=== PATIENT | female | born 2000 | race Caucasian/White ===

== ENCOUNTER 2020-05-15 22:49 | Outpatient (CLI) | payer OTHER ==
[2020-05-15 23:41] LABS: APPEARANCE,URINE SLIGHTLY-CLOUDY; BILIRUBIN,URINE NEGATIVE (NEGATIVE); COLOR,URINE YELLOW; GLUCOSE, URINE NEGATIVE (NEGATIVE); KETONES,URINE NEGATIVE (NEGATIVE); LEUKOCYTE ESTERASE,URINE SMALL (NEGATIVE); NITRITE,URINE NEGATIVE (NEGATIVE); PROTEIN,URINE NEGATIVE (NEGATIVE); URINE SPECIFIC GRAVITY 1.017; UROBILINOGEN,URINE NEGATIVE mg/dL (<2.0)
[2020-05-15 23:55] LABS: URINE AMPHETAMINES SCREEN NEGATIVE; URINE BARBITURATES SCREEN NEGATIVE; URINE BENZODIAZEPINES SCREEN NEGATIVE; URINE COCAINE SCREEN NEGATIVE; URINE MARIJUANA (THC) SCREEN NEGATIVE; URINE METHADONE SCREEN NEGATIVE; URINE PHENCYCLIDINE SCREEN NEGATIVE
--- NOTE | 2020-05-15 23:57 | Non Stress Test Report ---
Non Stress Test Datetime Report Generated by CPN: 05/15/2020 23:56 DEMOGRAPHIC EGA NST: 37.4 INDICATION Indication for Study (NST) Other: LC VITAL SIGNS Temperature - NST: 99.0 Pulse - NST: 110 RESP - NST: 17 NBPSYS NST: 130 NBPDIA NST: 72 MONITORING Monitor Explained: Monitor Explained; Test Explained; Patient Verbalized Understanding Time on Monitor: 05/15/2020 23:03 Time off Monitor: 05/15/2020 23:52 NST Duration: 49 NST INTERVENTIONS NST Interventions: PO Hydration; Reposition Patient Physician Notified NST: Dr. Todd BABY A: [id number] BABY A Movement : Present Contraction Frequency : irregular with irritability FHR Baseline : 145 Accelerations : 15X15 Decelerations : None Variability : Moderate 6-25bpm NST Review: Meets Criteria for Reactive NST NST Review and Verified By : Marleen Lozano RN NST Results: Reactive NST REPORT Report Trigger: Send Report
== END 2020-05-16 00:09 | disposition home or self-care (01) ==
LOC: LC 22:49
PROVIDERS: ATTEND Obstetrics & Gynecology
DX: O36.8130 Decreased fetal movements, third trimester, not applicable or unspecified (principal); Z3A.37 37 weeks gestation of pregnancy
CPT/HCPCS: 80307; 81005

== ENCOUNTER 2020-06-05 10:08 | Inpatient (IN) | payer OTHER ==
[2020-06-05 11:07] LABS: APPEARANCE,URINE SLIGHTLY-CLOUDY; BILIRUBIN,URINE NEGATIVE (NEGATIVE); COLOR,URINE YELLOW; GLUCOSE, URINE NEGATIVE (NEGATIVE); KETONES,URINE NEGATIVE (NEGATIVE); LEUKOCYTE ESTERASE,URINE TRACE (NEGATIVE); NITRITE,URINE NEGATIVE (NEGATIVE); PROTEIN,URINE NEGATIVE (NEGATIVE); URINE SPECIFIC GRAVITY 1.009; UROBILINOGEN,URINE NEGATIVE mg/dL (<2.0)
[2020-06-05 11:31] LABS: URINE AMPHETAMINES SCREEN NEGATIVE; URINE BARBITURATES SCREEN NEGATIVE; URINE BENZODIAZEPINES SCREEN NEGATIVE; URINE COCAINE SCREEN NEGATIVE; URINE MARIJUANA (THC) SCREEN NEGATIVE; URINE METHADONE SCREEN NEGATIVE; URINE PHENCYCLIDINE SCREEN NEGATIVE
[2020-06-05] MEDS ORDERED: RINGERS SOLUTION,LACTATED 1,000 ML IV PRN (13:29)
[2020-06-05] MEDS ORDERED: RINGERS SOLUTION,LACTATED 1,000 ML IV ONE (13:29)
[2020-06-05 13:59] LABS: ABSOLUTE BASOPHILS # (AUTO) 0.1 10^3/uL (0.0-0.2); ABSOLUTE LYMPHOCYTES (AUTO) 1.4 10^3/uL (0.5-4.7); ABSOLUTE MONOCYTES (AUTO) 0.5 10^3/uL (0.1-1.4); ABSOLUTE NEUT (AUTO) 13.5 10^3/uL (1.7-8.2); BASOPHILS % (AUTO) 0.4 % (0-2); EOSINOPHILS % (AUTO) 0.3 % (0-6); HEMATOCRIT 37.4 % (36.0-47.0); HEMOGLOBIN 12.9 g/dL (12.0-15.5); MEAN CORPUSCULAR HEMOGLOBIN 33.3 pg (27.0-33.4); MEAN CORPUSCULAR HGB CONC 34.4 g/dL (32.0-36.0); MEAN CORPUSCULAR VOLUME 97 fl (80-97); MONOCYTES % (AUTO) 3.2 % (3-13); PLATELET COUNT 204 10^3/uL (150-450); RED BLOOD COUNT 3.87 10^6/uL (3.72-5.28); RED CELL DISTRIBUTION WIDTH 12.3 % (11.5-14.0); SEGMENTED NEUTROPHILS % (AUTO) 87.1 % (42-78); TOTAL CELLS COUNTED % (AUTO) 100 %; WHITE BLOOD COUNT 15.5 10^3/uL (4.0-10.5)
[2020-06-05] MEDS ORDERED: EPHEDRINE SULFATE INJ 50 MG/1 ML AMPULE ONE (14:11)
[2020-06-05] MEDS ORDERED: MISOPROSTOL 0.2 MG TABLET ONE (14:11)
[2020-06-05] MEDS ORDERED: OXYTOCIN 10 UNIT/ML VIAL ONE (14:11)
[2020-06-05] MEDS ORDERED: OXYTOCIN/0.9 % SODIUM CHLORIDE 30 UNIT/500 ML RTUINJ ONE (14:12)
[2020-06-05] MEDS ORDERED: LIDOCAINE 1% INJ-PF (10 MG/ML) 30 ML SDV ONE (14:12)
[2020-06-05] MEDS ORDERED: FENTANYL/BUPIVACAINE/NS/PF 300 MCG/150 ML RTUINJ EPI ONE (14:12)
[2020-06-05] MEDS ORDERED: ROPIVACAINE HCL 0.2% INJ/PF (2 MG/ML) 20 ML SDV ONE (14:12)
--- NOTE | 2020-06-05 14:16 | Admission Physical ---
Datetime Report Generated by CPN: 06/05/2020 14:16 CURRENT ADMISSION Hx Assessment: The History has been Reviewed and is Current Chief Complaint: Uterine Contractions Indication for Induction: Not Applicable Admit Impression : Term, Intrauterine ; Active Labor Admit Plan: Admit to Unit; Initiate Labor Protocol ALLERGIES Medication Allergies: No Medication Allergies: No Known Allergies (06/05/2020) Latex: No Latex Allergies Food Allergies: none Environmental Allergies: none OBSTETRICAL HISTORY EDC: 06/21/2020 00:00 : 2 Para: 1 Term: 1 : 0 SAB: 0 IAB: 0 Ectopic: 0 Livin Cesareans: 0 VBACs: 0 Multiple Births: 0 Gestational Diabetes: No Rh Sensitization: No Incompetent Cervix: No RUBY: No Infertility: No ART Treatment: No Uterine Anomaly: No IUGR: No Hx Previous C/S: No Macrosomia: No Hx Loss/Stillborn: No PIH: No Hx : No Placenta Previa/Abruption: No Depression/PP Depression: Yes PTL/PROM: No Post Hemorrhage: No Current Procedures: Ultrasound; NST Obstetrical History Comments: G1- 2018- labor that was stopped, received steroids around 33 weeks. Delivered ar 37 weeks G2- Current SEE RECORDS Alcohol: No Marijuana : No Cocaine: No Other Illicit Drugs: No Cigarettes: Never Smoker. 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 exercise induced asthma (no inhaler, has not had issues since she was 13). child and wisdom teeth. INFECTIOUS HISTORY Gonorrhea: No Genital Herpes: No Chlamydia: No Syphilis: No Hepatitis: No HIV/AIDS Exposure: No Rash or Viral Illness: No HPV: No PHYSICAL EXAM General: Normal Heart: Normal Lungs: Normal Genitourinary Exam: Normal Extremities: Normal DTRs: Normal Pelvic Type: Adequate Physical Exam Comments: plevis proven to 7lbs 9oz Vital Signs: Reviewed; Within Normal Limits VAGINAL EXAM Dilatation: 5 Effacement: 90 Station: -1 Contraction Comments: q2-4min MEMBRANES Membranes: Bulging FETUS A EGA: 37.5 Monitoring: External US FHR Category: Category I Presentation: Vertex Admit Comment: 23yo @ 37w5d into L_D with contractions that started at 0200 and now with bloody show. Pt is O pos, RI, varicella non-immune, GBS negative. complicated by anxiety, depression, ADD and bipolar disorder with hx of delivery at 37w. Pt stopped medications prior to transfer of care to our office (transfered in from [place] at 35wga). Pt was 5cm on initial check in unit and after walking x1hr contractions became more painful and patient desires epidural. Plan is expectant management at this time, anticipate delivery. Dr. Serrano is the OB fashion model today. PLANS FOR LABOR AND DELIVERY Labor and Delivery: None Pain Management: Natural; Epidural Feeding Preference: Breast Benefit of Breast Feed Discussed: Yes Circumcision: Yes INFORMED CONSENT Assignment: Cheyenne Serrano MD Signature: with User ID: [email or web address] : with User ID: [email or web address]
[2020-06-05] MEDS ORDERED: OXYTOCIN/0.9 % SODIUM CHLORIDE 30 UNIT/500 ML RTUINJ IV PRN ×2 (16:21→18:21)
--- NOTE | 2020-06-05 16:27 | L&D Progress Notes ---
PROGRESS NOTES Datetime Report Generated by CPN: 06/05/2020 16:27 PROGRESS NOTE Impression: Normal Progression of Labor Procedures: Artificial ROM; Sterile Vag Exam Plan: Continue Present Management; Augmentation Informed Consent Obtained: Vaginal Delivery; Risks, Benefits and Alternatives Discussed Vital Signs : Reviewed; Within Normal Limits Comment: S: comfortable with epidural placement, agreable to AROM, no concerns at this time O:VSS, cat I tracing, cervix as stated A: IUP @ 37w5d in labor, progressing-stable AROM- moderate amount of clear fluid P: augment with pit as needed, anticipate delivery. Dr. Serrano in unit and aware of status VAGINAL EXAM Dilatation: 5 Effacement: 90 Station: -1 Contractions: q2-4min LAST VAGINAL EXAM-NURSING Nursing Exam Dilitation: 6.5 Nursing Exam Effacement: 100 Nursing Exam Station: -1 MEMBRANES Membranes: Ruptured Amniotic Fluid Color: Clear FETUS A Monitoring: External US FHR Category: Category I Presentation: Vertex SIGNATURE SIGNATURE: [id number];[id number] Assignment: Cheyenne Serrano MD Signature: with User ID: [email or web address] : with User ID: [email or web address]
[2020-06-05] MEDS ORDERED: ACETAMINOPHEN WITH CODEINE #3 TABLET PO PRN ×2 (18:21)
[2020-06-05] MEDS ORDERED: MAGNESIUM HYDROXIDE SUSP 30 ML UDCUP PO PRN (18:21)
[2020-06-05] MEDS ORDERED: MEASLES,MUMPS&RUBELLA VACC/PF 0.5 ML VIAL SUBCUT PRN (18:21)
[2020-06-05] MEDS ORDERED: PSEUDOEPHEDRINE HCL 30 MG TABLET PO PRN (18:21)
[2020-06-05] MEDS ORDERED: ZOLPIDEM TARTRATE 5 MG TABLET PO PRN (18:21)
[2020-06-05] MEDS ORDERED: DIBUCAINE 1% OINTMENT 28 GM TP PRN (18:21)
[2020-06-05] MEDS ORDERED: DIPHENHYDRAMINE HCL 25 MG CAPSULE PO PRN (18:21)
[2020-06-05] MEDS ORDERED: NA PHOS,M-B/NA PHOS,DI-BA (ADULT) 133 ML ENEMA PR PRN (18:21)
[2020-06-05] MEDS ORDERED: BENZOCAINE/MENTHOL AEROSOL SPRAY 56 ML TOP PRN (18:21)
[2020-06-05] MEDS ORDERED: GLYCERIN/WITCH HAZEL LEAF 1 EACH MED..WIPE TP PRN (18:21)
[2020-06-05] MEDS ORDERED: ACETAMINOPHEN 650 MG SUPP.RECT PR PRN (18:21)
[2020-06-05] MEDS ORDERED: DIPH/PERTUSS(ACELL)/TETANUS VAC/PF 0.5 ML SYR (>=10YO) IM PRN (18:21)
[2020-06-05] MEDS ORDERED: PROMETHAZINE HCL 25 MG TABLET PO PRN (18:21)
[2020-06-05] MEDS ORDERED: PROMETHAZINE HCL INJ 25 MG/1 ML VIAL IV PRN (18:21)
[2020-06-05] MEDS ORDERED: PROMETHAZINE HCL 25 MG SUPP.RECT PR PRN (18:21)
--- NOTE | 2020-06-05 20:34 | Warning Signs in Babies ---
VOD Warning Signs Datetime Report Generated by N: 06/05/2020 20:34 VOD#608 -Warning Signs in Babies: Viewed with Parent(s)/Family (06/05/2020 20:30:Jordan Brannon RN)
--- NOTE | 2020-06-05 20:35 | Delivery Summary ---
Del Sum A-C Datetime Report Generated by CPN: 06/05/2020 20:35 DELIVERY PERSONNEL DELIVERY PERSONNEL: [id number] Delivery Doctor:: Cheyenne Serrano MD Labor and Delivery Nurse:: Dejah Maddox RNfinance business manager Nurse:: IGNACIO Chavez Nursery Nurse:: Azul Saldana RN Nursery Nurse:: Tuyet Mckeon RN [employer] Member/REPLANTING MACHINE CREWMAN: Kerrie Olson, SHAFT REPAIRER [employer] Member/REPLANTING MACHINE CREWMAN: Jillian Richmond, ST MATERNAL INFORMATION Delivery Anesthesia: Epidural Medications After Delivery: Pitocin Bolus-Please Comment Delivery QBL: 200 Maternal Complications: None LABOR SUMMARY EDC: 06/21/2020 00:00 No. Babies in Womb: 1 Attempted: No Labor Anesthesia: Epidural LABOR INFORMATION Reason for Induction: Not Applicable Onset of Labor: 06/05/2020 16:07 Complete Dilatation: 06/05/2020 18:07 Oxytocin: Augmentation Group B Beta Strep: Negative Antibiotics # of Doses: o Name of Antibiotic Given: NA Steroids Given: None Reason Steroids Not Administered: Not Applicable MEMBRANES Membranes Rupture Method: Artificial Rupture of Membranes: 06/05/2020 16:07 Length of Rupture (hr): 2.33 Amniotic Fluid Color: Clear Amniotic Fluid Amount: Small Amniotic Fluid Odor: Normal STAGES OF LABOR Stage 1 hr: 2 Stage 1 min: 0 Stage 2 hr: 0 Stage 2 min: 20 Stage 3 hr: 0 Stage 3 min: 4 Total Time in Labor hr: 2 Total Time in Labor min: 24 VAGINAL DELIVERY Episiotomy: None Laceration #1: None Laceration Extension #1: N/A Laceration #2: None Laceration Extension #2: N/A Laceration #3: None Laceration Extension #3: N/A Laceration Repair: Not Applicable Sponge Count Correct: N/A Sharps Count Correct: N/A CSECTION DELIVERY Primary Indication: N/A Secondary Indication: N/A CSection Incidence: N/A Labor: N/A Elective: N/A CSection Incision: N/A BABY A INFORMATION Infant Delivery Date/Time: 06/05/2020 18:27 Method of Delivery: Vaginal Nurse Controlled Delivery: No Born in Route : No : N/A Forceps: N/A Vacuum Extraction: N/A Shoulder Dystocia : No PRESENTATION/POSITION BABY A Presentation: Cephalic Cephalic Presentation: Vertex Vertex Position: Right Occipital Anterior Breech Presentation: N/A PLACENTA INFORMATION BABY A Placenta Delivery Time : 06/05/2020 18:31 Placenta Method of Delivery: Spontaneous Placenta Status: Delivered SCORES BABY A Heart Rate 1 min: >100 bpm Resp Effort 1 min: Good Cry Reflex Irritability 1 min: Cough or Sneeze or Pulls Away Muscle Tone 1 min: Active Motion Color 1 min: Blue/Pale Resuscitation Effort 1 min: Tactile Stimulation SCORE 1 MIN: 8 Heart Rate 5 min: >100 bpm Resp Effort 5 min: Good Cry Reflex Irritability 5 min: Cough or Sneeze or Pulls Away Muscle Tone 5 min: Active Motion Color 5 min: Body [place], Extremities Blue Resuscitation Effort 5 min: N/A SCORE 5 MIN: 9 Resuscitation Effort 10 min: N/A INFANT INFORMATION BABY A Gestational Age at Delivery: 37.5 Gestational Status: Early Term- 37- 38.6 Weeks Outcome : Liveborn Infant Condition : Stable Sex: Male IDENTIFICATION BABY A Infant Verification Date/Time: 06/05/2020 18:50 ID Band Number: [id number] Mother's Name Verified: Yes RN Verifying : M. Tan, RN Additional Verifying Personnel: S. Bairdford, RNC WEIGHT/LENGTH BABY A Birthweight (gm): 3549 Infant Weight (lb): 7 Infant Weight (oz): 13 Infant Length (in): 19.50 Length (cm): 49.53 CORD INFORMATION BABY A No. Cord Vessels: 3 Nuchal Cord : Around Neck x1, Loose Cord Blood Taken: Yes-For Eval (Mom's Blood Type - or O+) Suction: None ASSESSMENT BABY A Complications: None Physical Findings at Delivery: Within Normal Limits Respirations: Appears Normal Skin to Skin: Yes Skin to Skin Time (min): 60 Transferred To: Remains with Mother BABY B INFORMATION : N/A SIGNATURES Signature: with User ID: [email or web address]
--- NOTE | 2020-06-05 20:36 | Birth Certificate Data ---
Cert Data Datetime Report Generated by JAJA: 06/05/2020 20:35 CERTIFICATE DATA Delivery Provider: Cheyenne Serrano MD (05/15/2020 23:01:IGNACIO Chavez) 47a. Care: Yes (05/15/2020 23:01:Jordan Brannon RN) 47b. Date of First Visit: 11/15/2019 00:00 (05/15/2020 23:01:IGNACIO Chavez) 47c. Date of Last Visit: 06/03/2020 00:00 (05/15/2020 23:01:Dejah Maddox RN) 47d. Number of Visits: 13 (05/15/2020 23:01:IGNACIO Chavez) 48a. Number of Prev Live Births: 1 (05/15/2020 23:01:Jordan Brannon RN) 48b. Now Livin (05/15/2020 23:01:Jordan Brannon RN) 48c. Live Births Now : 0 (05/15/2020 23:01:QS system process) 48e. Losses: 0 (05/15/2020 23:01:Jordan Brannon RN) RISK FACTORS IN THIS 49a. Diabetes: No (05/15/2020 23:01:Jordan Brannon RN) 49b. Hypertension: No (05/15/2020 23:01:Jordan Brannon RN) 49c. Previous Births: 0 (05/15/2020 23:01:Jordan Brannon RN) 49d. Stillborns: No (05/15/2020 23:01:Jordan Brannon RN) 49d. IUGR: No (05/15/2020 23:01:Jordan Brannon RN) 49e. Infertility Treatment: No (05/15/2020 23:01:Jordan Brannon RN) 49f. Previous Cesareans: 0 (05/15/2020 23:01:Jordan Brannon RN) Mother's Height 50b. Height Inches: 65 (05/15/2020 22:58:QS system process) Mother's Weight 51a. Pre- Weight (lbs): 161 (05/15/2020 23:01:Jordan Brannon RN) 51b. Weight at Delivery (lbs): 196 (06/05/2020 18:49:QS system process) Infections Present/Treated 53a. Gonorrhea: No (05/15/2020 23:01:Jordan Brannon RN) Results this Hospital Visit : Negative (05/15/2020 23:01:IGNACIO Chavez) 53b. Syphilis: No (05/15/2020 23:01:Jordan Brannon RN) 53c. Chlamydia: No (05/15/2020 23:01:Jordan Brannon RN) Results this Hospital Visit: Negative (05/15/2020 23:01:IGNACIO Chavez) 53d. Hepatitis B: No (05/15/2020 23:01:Jordan Brannon RN) Results this Hospital Visit: Negative (05/15/2020 23:01:IGNACIO Chavez) 53e. Hepatitis C: Negative (05/15/2020 23::[facility]) 53h. Mother Tested for HBsAG: Yes (05/15/2020 23::[facility]) 53j. Test Result: Negative (05/15/2020 23::[facility]) Obstetric Procedures 54a, b, c. Obstetric Procedures: Ultrasound; NST (05/15/2020::Jordan Brannon RN) Cigarette Smoking Cigarette Smoking: Never Smoker. [id number] (05/15/2020 23::Jordan Brannon RN) 55a. 3 Months Before Preg - Ci (05/15/2020 23::Jordan Brannon RN) 55a. Packs: 0 (05/15/2020 23::Jordan Brannon RN) 55b. 1st Trimester of Preg- Ci (05/15/2020 23::Jordan Brannon RN) 55b. Packs: 0 (05/15/2020 23:01:Jordan Brannon RN) 55c. 2nd Trimester of Preg- Ci (05/15/2020 23:01:Jordan Brannon RN) 55c. Packs: 0 (05/15/2020 23:01:Jordan Brannon RN) 55d. 3rd Trimester of Preg- Ci (05/15/2020 23:01:Jordan Brannon RN) 55d. Packs: 0 (05/15/2020 23:01:Jordan Brannon RN) Onset of Labor 56a. PROM >12 Hrs: 2.33 (05/15/2020 23:01:QS system process) 56b. Precipitous Labor <3 Hrs: 2 (05/15/2020 23:01:QS system process) 56c. Prolonged Labor > 20 Hrs: 2 (05/15/2020 23:01:QS system process) 57a. Induction of Labor: Augmentation (05/15/2020 23:01:IGNACIO Chavez) 57c. Non-Vertex Presentation A: Vertex (05/15/2020 23:01:IGNACIO Chavez) 57d. Steroids - Lung Mat: None (05/15/2020 23::IGNACIO Chavez) 57d. Steroids - Lung Mat: Not Applicable (05/15/2020 23::IGNACIO Chavez) 57f. Mat [place] or Temp >100.4: 97.9 (05/15/2020 23::Dejah Maddox RN) 57g. Moderate/Heavy Meconium: Clear (06/05/2020 16:07:Dejah Maddox RN) 57h. Intolerance of Labor: N/A (05/15/2020 23::IGNACIO Chavez) : N/A (05/15/2020 23::IGNACIO Chavez) 57i. Epidural/Spinal Anesthesia: Epidural (05/15/2020 23::IGNACIO Chavez) Method of Delivery 58a. Forceps - Unsuccessful A: N/A (05/15/2020 23::IGNACIO Chavez) 58b. Vacuum - Unsuccessful A: N/A (05/15/2020 23::[facility]) 58c. Presentation at 58c. Presentation at - A : Vertex (05/15/2020 23:01:[facility], [facility]) 58c. Presentation at - A : N/A (05/15/2020 23:01:[facility], [facility]) 58c. Presentation at - A : Cephalic (05/15/2020 23:01:[facility], [facility]) Final Route and Method of Del 58d. Baby A Route/Delivery: Vaginal (05/15/2020 23:01:[facility], [facility]) 58e. Trial of Labor Attempted: No (05/15/2020 23:01:[facility], [facility]) 58e. Trial of Labor Attempted A: N/A (05/15/2020 23:01:[facility], [facility]) 58e. Trial of Labor Attempted B: N/A (05/15/2020 23:01:[facility], [facility]) Maternal Morbidity 59b. 3rd or 4th Degree Lacs: None (05/15/2020 23:01:[facility]) 59b. 3rd or 4th Degree Lacs: N/A (05/15/2020 23:01:Jordan Brannon RN) Birthweight Baby A: 3549 (05/15/2020 23:01:Tamie Grant RN) 60a. Pounds : 7 (05/15/2020 23:01:QS system process) 60b. Ounces: 13 (05/15/2020 23:01:QS system process) 61. GA at Delivery Baby A: 37.5 (05/15/2020 23:01:[facility]) : Early Term- 37- 38.6 Weeks (05/15/2020 23:01:QS system process) 62a. 5 Minute Baby A: 9 (05/15/2020 23:01:QS system process)
[2020-06-05] MEDS: IBUPROFEN 800 MG TABLET PO SCH (22:30)
[2020-06-05] MEDS: FAMOTIDINE 20 MG TABLET PO SCH (22:30)
[2020-06-06] MEDS: IBUPROFEN 800 MG TABLET PO SCH ×3 (06:33→21:53)
[2020-06-06 07:38] LABS: HEMATOCRIT 33.4 % (36.0-47.0); HEMOGLOBIN 11.9 g/dL (12.0-15.5); MEAN CORPUSCULAR HEMOGLOBIN 34.4 pg (27.0-33.4); MEAN CORPUSCULAR HGB CONC 35.6 g/dL (32.0-36.0); MEAN CORPUSCULAR VOLUME 97 fl (80-97); PLATELET COUNT 178 10^3/uL (150-450); RED BLOOD COUNT 3.45 10^6/uL (3.72-5.28); RED CELL DISTRIBUTION WIDTH 12.3 % (11.5-14.0); WHITE BLOOD COUNT 16.1 10^3/uL (4.0-10.5)
--- NOTE | 2020-06-06 09:35 | PDOC PROGRESS REPORT ---
Subjective-OB Progress Note for:: 06/06/20 - PP Day #1, doing well, UOB, voiding, no complaints. Physical Exam (OB) Vital Signs: Temp Pulse Resp BP Pulse Ox 98.1 F 70 18 111/65 97 06/05/20 22:16 06/05/20 22:16 06/05/20 22:16 06/05/20 22:16 06/05/20 22:16 Intake & Output 06/05/20 06/06/20 06/07/20 06:59 06:59 06:59 Intake Total 350 Balance 350 Weight 89.2 kg - General General Appearance: Appears well, Alert In distress: None - Maternal Morbidity 59. Maternal Morbidity (serious complications experinced by the mother associated with labor and delivery: None of the above - Abdomen Fundal Height: u/u - u/2 - Respiratory Respiratory Status: No respiratory distress - Abdominal Distension: No distension Tenderness: Nontender - Genitourinary Genitourinary Note: voiding - Extremities Upper extremity: Normal inspection Lower extremities: Normal inspection - Neurological Cognition: Normal Orientation: AAOx4 - Psychological Associated symptoms: Normal affect, Normal mood - Skin Skin Temperature: Warm Skin Moisture: Dry Objective-Diagnostic Laboratory: 06/06/20 06:24 06/05/20 06/05/20 06/05/20 10:15 13:50 13:50 WBC 15.5 H RBC 3.87 Hgb 12.9 Hct 37.4 MCV 97 MCH 33.3 MCHC 34.4 RDW 12.3 Plt Count 204 Seg Neutrophils % 87.1 H Urine Color YELLOW Urine Appearance SLIGHTLY-CLOUDY Urine pH 7.0 Ur Specific [place] 1.009 Urine Protein NEGATIVE Urine Glucose (UA) NEGATIVE Urine Ketones NEGATIVE Urine Blood NEGATIVE Urine Nitrite NEGATIVE Ur Leukocyte Esterase TRACE H Blood Type O POSITIVE Antibody Screen NEGATIVE 06/06/20 06:24 WBC 16.1 H RBC 3.45 L Hgb 11.9 L Hct 33.4 L MCV 97 MCH 34.4 H MCHC 35.6 RDW 12.3 Plt Count 178 Seg Neutrophils % Urine Color Urine Appearance Urine pH Ur Specific [place] Urine Protein Urine Glucose (UA) Urine Ketones Urine Blood Urine Nitrite Ur Leukocyte Esterase Blood Type Antibody Screen Assessment and Plan(PN) - Time Spent with Patient Time with patient: Less than 15 minutes Medications reviewed and adjusted accordingly: Yes - Disposition Anticipated Discharge Disposition: Home, Self Care Anticipated Discharge Timeframe: within 24 hours
[2020-06-06] MEDS: SENNOSIDES/DOCUSATE 8.6-50 MG 1 EACH TABLET PO SCH (10:37)
[2020-06-06] MEDS: FERROUS SULFATE 325 MG TABLET PO SCH ×2 (10:37→18:02)
[2020-06-06] MEDS: PRENATAL VITAMIN W DHA CAPSULE PO SCH (10:37)
[2020-06-06] MEDS: DOCUSATE SODIUM 100 MG CAPSULE PO SCH ×2 (10:37→18:02)
[2020-06-06] MEDS: FAMOTIDINE 20 MG TABLET PO SCH ×2 (10:37→21:53)
[2020-06-07] MEDS: IBUPROFEN 800 MG TABLET PO SCH ×2 (06:33→13:44)
[2020-06-07] MEDS: FAMOTIDINE 20 MG TABLET PO SCH (09:05)
[2020-06-07] MEDS: DOCUSATE SODIUM 100 MG CAPSULE PO SCH (09:05)
[2020-06-07] MEDS: SENNOSIDES/DOCUSATE 8.6-50 MG 1 EACH TABLET PO SCH (09:05)
[2020-06-07] MEDS: FERROUS SULFATE 325 MG TABLET PO SCH (09:05)
[2020-06-07] MEDS: PRENATAL VITAMIN W DHA CAPSULE PO SCH (09:05)
--- NOTE | 2020-06-07 10:24 | PDOC DISCHARGE SUMMARY ---
Impression - Admit/DC Date/PCP Admission Date/Primary Care Provider: 06/05/20 13:29 TONY CUNNINGHAM MD Discharge Date: 06/07/20 - Discharge Diagnosis (1) Normal vaginal delivery Is this a current diagnosis for this admission?: Yes (2) Spontaneous onset of labor Is this a current diagnosis for this admission?: Yes - Additional Information Discharge Diet: Regular Discharge Activity: Balance Activity w/Rest, Pelvic Rest Referrals: TONY CUNNINGHAM MD [Primary Care Provider] - Prescriptions: Ibuprofen [Motrin 800 mg Tablet] 800 mg PO Q8HP PRN #60 tablet PRN Reason: Home Medications: Prenat 115/Iron Fum/Folic/Dss [ 19 Tablet] 1 tab PO DAILY 05/15/20 Ibuprofen [Motrin 800 mg Tablet] 800 mg PO Q8HP PRN #60 tablet 06/07/20 Hospital Course 59. Maternal Morbidity (serious complications experinced by the mother associated with labor and delivery: None of the above Results Laboratory Results: WBC 16.1 10^3/uL (4.0-10.5) H 06/06/20 06:24 RBC 3.45 10^6/uL (3.72-5.28) L 06/06/20 06:24 Hgb 11.9 g/dL (12.0-15.5) L 06/06/20 06:24 Hct 33.4 % (36.0-47.0) L 06/06/20 06:24 MCV 97 fl (80-97) 06/06/20 06:24 MCH 34.4 pg (27.0-33.4) H 06/06/20 06:24 MCHC 35.6 g/dL (32.0-36.0) 06/06/20 06:24 RDW 12.3 % (11.5-14.0) 06/06/20 06:24 Plt Count 178 10^3/uL (150-450) 06/06/20 06:24 Lymph % (Auto) 9.0 % (13-45) L 06/05/20 13:50 [place] % (Auto) 3.2 % (3-13) 06/05/20 13:50 Eos % (Auto) 0.3 % (0-6) 06/05/20 13:50 Baso % (Auto) 0.4 % (0-2) 06/05/20 13:50 Absolute Neuts (auto) 13.5 10^3/uL (1.7-8.2) H 06/05/20 13:50 Absolute Lymphs (auto) 1.4 10^3/uL (0.5-4.7) 06/05/20 13:50 Absolute Monos (auto) 0.5 10^3/uL (0.1-1.4) 06/05/20 13:50 Absolute Eos (auto) 0.0 10^3/uL (0.0-0.6) 06/05/20 13:50 Absolute Basos (auto) 0.1 10^3/uL (0.0-0.2) 06/05/20 13:50 Seg Neutrophils % 87.1 % (42-78) H 06/05/20 13:50 Urine Color YELLOW 06/05/20 10:15 Urine Appearance SLIGHTLY-CLOUDY 06/05/20 10:15 Urine pH 7.0 (5.0-9.0) 06/05/20 10:15 Ur Specific [place] 1.009 06/05/20 10:15 Urine Protein NEGATIVE mg/dL (NEGATIVE) 06/05/20 10:15 Urine Glucose (UA) NEGATIVE mg/dL (NEGATIVE) 06/05/20 10:15 Urine Ketones NEGATIVE mg/dL (NEGATIVE) 06/05/20 10:15 Urine Blood NEGATIVE (NEGATIVE) 06/05/20 10:15 Urine Nitrite NEGATIVE (NEGATIVE) 06/05/20 10:15 Urine Bilirubin NEGATIVE (NEGATIVE) 06/05/20 10:15 Urine Urobilinogen NEGATIVE mg/dL (<2.0) 06/05/20 10:15 Ur Leukocyte Esterase TRACE (NEGATIVE) H 06/05/20 10:15 Urine Ascorbic Acid NEGATIVE (NEGATIVE) 06/05/20 10:15 Urine Opiates Screen NEGATIVE 06/05/20 10:15 Urine Methadone Screen NEGATIVE 06/05/20 10:15 Ur Barbiturates Screen NEGATIVE 06/05/20 10:15 Ur Phencyclidine Scrn NEGATIVE 06/05/20 10:15 Ur Amphetamines Screen NEGATIVE 06/05/20 10:15 U Benzodiazepines Scrn NEGATIVE 06/05/20 10:15 Urine Cocaine Screen NEGATIVE 06/05/20 10:15 U Marijuana (THC) Screen NEGATIVE 06/05/20 10:15 RPR NONREACTIVE (NONREACTIVE) 06/05/20 13:50 Blood Type O POSITIVE 06/05/20 13:50 Antibody Screen NEGATIVE 06/05/20 13:50 Plan Plan of Treatment: follow up in 4 weeks at [facility] for post check
[2020-06-07 13:12] VITALS: BP 116/73
== END 2020-06-07 14:40 | disposition home or self-care (01) | DRG 807 ==
LOC: LC 10:08 → LR 13:29 → 2S 21:39
PROVIDERS: ADMIT Obstetrics & Gynecology; ATTEND Obstetrics & Gynecology
PROC: 10E0XZZ Delivery of Products of Conception, External Approach (ICD-10-PCS; principal; 2020-06-05)
PROC: 10907ZC Drainage of Amniotic Fluid, Therapeutic from Products of Conception, Via Natural or Artificial Opening (ICD-10-PCS; 2020-06-05)
DX: O69.81X0 Labor and delivery complicated by cord around neck, without compression, not applicable or unspecified (principal); Z37.0 Single live birth; Z20.828 Contact with and (suspected) exposure to other viral communicable diseases; Z3A.37 37 weeks gestation of pregnancy
CPT/HCPCS: 36415; 80307; 81005; 85025; 85027; 86592; 86850; 86900; 86901; J2590; J2795; J3010; J3490